=== PATIENT | female | born 1995 | race Caucasian/White ===

== ENCOUNTER → 2016-07-22 | Outpatient (CLI) | payer OTHER ==
--- NOTE | 2016-07-23 08:35 | RADIOLOGY REPORT (SQ) ---
EXAM DESCRIPTION: MRI HEAD COMBO COMPLETED DATE/TIME: 07/22/2016 8:27 pm REASON FOR STUDY: Multiple sclerosis,Migraine, Obstructive sleep apnea (adult) (pediatric) G35 MULT IPLE SCLEROSIS COMPARISON: CT head dated 03/28/2015. TECHNIQUE: Multiplanar imaging includes noncontrasted T1, T2, FLAIR, diffusion with ADC map and post gadolinium contrast T1 sequences. Images stored on PACS. CONTRAST TYPE AND DOSE: 20 mL Multihance. RENAL FUNCTION: None required. The patient is less than 50 years old. LIMITATIONS: None. FINDINGS: ANATOMY: No anomalies. Normal vascular flow voids. Pituitary fossa normal. CSF SPACES: Normal in size and contour. No hemorrhage. CEREBRUM: Sulci and gyri normal in size and contour. Normal white matter signal on FLAIR imaging. No evidence of hemorrhage, mass, or extraaxial fluid collection. No abnormal enhancement post contrast. POSTERIOR FOSSA: No signal alteration. No hemorrhage. No edema, masses, or mass effect. Internal porfirio tory canals, cerebellopontine angles, mastoids normal. No enhancing lesions. No abnormal enhancement post contrast. DIFFUSION IMAGING: Negative for acute or subacute infarction. ORBITS: No masses. Globes normal. PARANASAL SINUSES: No fluid levels. Mucosa normal. OTHER: No other significant finding. IMPRESSION: NORMAL MRI OF THE BRAIN WITHOUT AND WITH INTRAVENOUS GADOLINIUM CONTRAST. TECHNICAL DOCUMENTATION: JOB ID: [id number]- All Rights Reserved
== END ==
LOC: RAD 19:23
PROVIDERS: ATTEND Specialist
DX: G35 Multiple sclerosis (principal); G43.909 Migraine, unspecified, not intractable, without status migrainosus; G47.33 Obstructive sleep apnea (adult) (pediatric)
CPT/HCPCS: 70553; A9577

== ENCOUNTER 2017-07-06 19:32 | Emergency (ER) | payer OTHER ==
[2017-07-06 20:08] VITALS: BP 140/71
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
[2017-07-06] MEDS ORDERED: DIPH/PERTUSS(ACELL)/TETANUS VAC/PF 0.5 ML SYR (>=10YO) IM ONE (20:20)
[2017-07-06] MEDS ORDERED: SILVER SULFADIAZINE 1% CREAM 25 GM TP ONE (20:30)
== END 2017-07-06 20:54 | disposition home or self-care (01) ==
LOC: ER 19:32
DX: T24.201A Burn of second degree of unspecified site of right lower limb, except ankle and foot, initial encounter (principal); V86.59XA Driver of other special all-terrain or other off-road motor vehicle injured in nontraffic accident, initial encounter; Z23 Encounter for immunization
CPT/HCPCS: 90471; 90715; 99283

== ENCOUNTER 2017-08-03 10:34 | Emergency (ER) | payer OTHER ==
[2017-08-03 10:45] VITALS: BP 115/80
[2017-08-03] MEDS ORDERED: DEXAMETHASONE SOD PHOS INJ 10 MG/1 ML VIAL IM ONE (10:52)
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
== END 2017-08-03 11:02 | disposition home or self-care (01) ==
LOC: ER 10:34
DX: L23.7 Allergic contact dermatitis due to plants, except food (principal)
CPT/HCPCS: 99282

== ENCOUNTER 2017-11-16 22:10 | Emergency (ER) | payer OTHER ==
[2017-11-16 22:24] VITALS: BP 127/60
[2017-11-16] MEDS ORDERED: LIDOCAINE 1% INJ (10 MG/ML) 10 ML MDV INJ ONE (23:27)
[2017-11-16] MEDS ORDERED: BUPIVACAINE HCL 0.5 % INJ/PF 30 ML SDV INJ ONE (23:27)
[2017-11-16] MEDS ORDERED: LIDOCAINE 1% INJ-PF (10 MG/ML) 30 ML SDV INJ ONE (23:28)
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
== END 2017-11-17 00:49 | disposition home or self-care (01) ==
LOC: ER 22:10
PROC: 0HDRXZZ Extraction of Toe Nail, External Approach (ICD-10-PCS; principal; 2017-11-16)
DX: L60.0 Ingrowing nail (principal); Z88.0 Allergy status to penicillin; Z88.6 Allergy status to analgesic agent
CPT/HCPCS: 99283; 11730; J3490 ×2

== ENCOUNTER 2018-06-27 19:41 | Emergency (ER) | payer BC, OTHER ==
[2018-06-27] MEDS ORDERED: ACETAMINOPHEN 325 MG TABLET PO ONE (20:08)
--- NOTE | 2018-06-27 20:10 | ER Document Report ---
ED Medical Screen (RME) - General Chief Complaint: Flank Pain Stated Complaint: FLANK PAIN Time Seen by Provider: 06/27/18 20:07 Mode of Arrival: Ambulatory Information source: Patient Notes: 23-year-old female presents to ED for complaint of bilateral flank pain with burning frequency and urgency of urine. She states her last menstrual period was June 02. She states she has been nausea and vomiting up till now she is just nauseated. Patient states she has a history of an appendectomy and tonsils and adenoids removed denies any other medical history. Patient is alert oriented respirations regular and unlabored speaking in full sentences. I have greeted and performed a rapid initial assessment of this patient. A comprehensive ED assessment and evaluation of the patient, analysis of test results and completion of medical decision making process will be conducted by an additional ED providers. Dictation of this chart was performed using voice recognition software; therefore, there may be some unintended grammatical errors. TRAVEL OUTSIDE OF THE [place] IN LAST 30 DAYS: No - Related Data Allergies/Adverse Reactions: amoxicillin [Amoxicillin] Allergy (Verified 03/28/15 15:52) acetaminophen [From Vicodin] Adverse Reaction (Verified 03/28/15 15:52) Hives hydrocodone bitartrate [From Vicodin] Adverse Reaction (Verified 03/28/15 15:52) Hives Past Medical History Renal/ Medical History: Denies: Hx Peritoneal Dialysis Musculoskeltal Medical History: Reports Hx Musculoskeletal Trauma Traumatic Medical History: Reports: Hx Fractures - Wrist Past Surgical History: Reports: Hx Adenoidectomy, Hx Appendectomy, Hx Tonsillectomy - Immunizations Immunizations up to date: Yes Hx Diphtheria, Pertussis, Tetanus Vaccination: Yes Physical Exam - Vital signs Vitals: Temp Pulse Resp BP Pulse Ox 99.1 F 106 H 20 128/72 H 98 06/27/18 19:45 06/27/18 19:45 06/27/18 19:45 06/27/18 19:45 06/27/18 19:45 Course - Vital Signs Vital signs: Temp Pulse Resp BP Pulse Ox 99.1 F 106 H 20 128/72 H 98 06/27/18 19:45 06/27/18 19:45 06/27/18 19:45 06/27/18 19:45 06/27/18 19:45
[2018-06-27 20:56] LABS: APPEARANCE,URINE CLEAR; BILIRUBIN,URINE NEGATIVE (NEGATIVE); COLOR,URINE YELLOW; GLUCOSE, URINE NEGATIVE (NEGATIVE); KETONES,URINE NEGATIVE (NEGATIVE); LEUKOCYTE ESTERASE,URINE NEGATIVE (NEGATIVE); NITRITE,URINE NEGATIVE (NEGATIVE); PROTEIN,URINE NEGATIVE (NEGATIVE); URINE SPECIFIC GRAVITY 1.028
[2018-06-27 23:01] LABS: HEMATOCRIT 37.6 % (36.0-47.0); HEMOGLOBIN 12.7 g/dL (12.0-15.5); MEAN CORPUSCULAR HEMOGLOBIN 28.5 pg (27.0-33.4); MEAN CORPUSCULAR HGB CONC 33.7 g/dL (32.0-36.0); MEAN CORPUSCULAR VOLUME 85 fl (80-97); PLATELET COUNT 180 10^3/uL (150-450); RED BLOOD COUNT 4.45 10^6/uL (3.72-5.28); RED CELL DISTRIBUTION WIDTH 15.2 % (11.5-14.0); WHITE BLOOD COUNT 7.5 10^3/uL (4.0-10.5)
[2018-06-27] MEDS ORDERED: CEPHALEXIN 500 MG CAPSULE PO ONE (23:04)
--- NOTE | 2018-06-27 23:04 | ER Document Report ---
ED General - General Chief Complaint: Flank Pain Stated Complaint: FLANK PAIN Time Seen by Provider: 06/27/18 20:07 Mode of Arrival: Ambulatory Notes: Patient is a 23-year-old female with past medical history of morbid obesity, presents complaining of bilateral flank discomfort, dysuria and urinary frequency for the past 2 weeks. States that her symptoms are gradually, have been worsening since onset. Nothing seems to improve or worsen her discomfort which she does regard is being a mild to moderate, throbbing, constant pain to the bilateral flanks. She states this feels very similar to when she had kidney infections in the past. She also notes that she has had some hematuria. She has not seen her primary care physician regarding today's concerns. Denies fever or constitutional symptoms. No chest pain or shortness of breath. No pleuritic pain. No use of estrogen. No history of DVT or pulmonary embolus. TRAVEL OUTSIDE OF THE [place] IN LAST 30 DAYS: No - Related Data Allergies/Adverse Reactions: amoxicillin [Amoxicillin] Allergy (Verified 03/28/15 15:52) hydrocodone bitartrate [From Vicodin] Adverse Reaction (Verified 03/28/15 15:52) Hives Past Medical History - General Information source: Patient - Social History Smoking Status: Never Smoker Frequency of alcohol use: None Drug Abuse: None Lives with: Spouse/Significant other Family History: Reviewed & Not Pertinent, CVA, DM, Hypertension, Other - Multiple sclerosis Patient has suicidal ideation: No Patient has homicidal ideation: No Renal/ Medical History: Denies: Hx Peritoneal Dialysis Musculoskeletal Medical History: Reports Hx Musculoskeletal Trauma Traumatic Medical History: Reports: Hx Fractures - Wrist Past Surgical History: Reports: Hx Adenoidectomy, Hx Appendectomy, Hx Tonsillectomy - Immunizations Immunizations up to date: Yes Hx Diphtheria, Pertussis, Tetanus Vaccination: Yes Review of Systems - Review of Systems Notes: Constitutional: Negative for fever. HENT: Negative for sore throat. Eyes: Negative for visual changes. Cardiovascular: Negative for chest pain. Respiratory: Negative for shortness of breath. Gastrointestinal: Negative for abdominal pain, positive for bilateral flank pain, nausea and vomiting that have been resolved for the past several days Genitourinary: Positive for dysuria. Musculoskeletal: Negative for back pain. Skin: Negative for rash. Neurological: Negative for headaches, weakness or numbness. 10 point ROS negative except as marked above and in HPI. Physical Exam - Vital signs Vitals: Temp Pulse Resp BP Pulse Ox 99.1 F 106 H 20 128/72 H 98 06/27/18 19:45 06/27/18 19:45 06/27/18 19:45 06/27/18 19:45 06/27/18 19:45 Interpretation: Tachycardic - Resolved at the time of my assessment with a heart rate of 90 Notes: PHYSICAL EXAMINATION: GENERAL: Well-appearing, well-nourished and in no acute distress. HEAD: Atraumatic, normocephalic. EYES: Pupils equal round and reactive to light, extraocular movements intact, sclera anicteric, conjunctiva are normal. ENT: nares patent, oropharynx clear without exudates. Moist mucous membranes. NECK: Normal range of motion, supple without lymphadenopathy LUNGS: Breath sounds clear to auscultation bilaterally and equal. No wheezes rales or rhonchi. HEART: Regular rate and rhythm without murmurs ABDOMEN: Soft, nontender, normoactive bowel sounds. No guarding, no rebound. No masses appreciated. Mild bilateral CVA tenderness to palpation EXTREMITIES: Normal range of motion, no pitting or edema. No cyanosis. NEUROLOGICAL: No focal neurological deficits. Moves all extremities spontaneously and on command. PSYCH: Normal mood, normal affect. SKIN: Warm, Dry, normal turgor, no rashes or lesions noted. Course - Re-evaluation Re-evalutation: 06/27/18 23:02 Patient presents with bilateral CVA tenderness, dysuria and urine frequency although urinalysis is not suggestive of pyelonephritis. On exam patient is very well in appearance, no focal abdominal tenderness on palpation. Does have some mild bilateral CVA tenderness. Vitals are within normal limit. No fever or constitutional symptoms. Clinical history is suggestive of a urinary source of the patient's pain and symptoms. Alternative consideration would be muscular skeletal origin. Labs otherwise unremarkable. Urine culture has been sent. I have initiated empiric treatment given the degree of the patient's symptoms by history and have advised her of the inconsistency of her urine study with her reported complaints. I have advised close outpatient follow-up particular given this discrepancy. At this time will discharge with return precautions and follow-up recommendations. Verbal discharge instructions given a the bedside and opportunity for questions given. Medication warnings reviewed. Patient is in agreement with this plan and has verbalized understanding of return precautions and the need for primary care follow-up in the next 24-72 hours. - Vital Signs Vital signs: Temp Pulse Resp BP Pulse Ox 97.9 F 85 16 102/63 97 06/28/18 00:34 06/28/18 00:34 06/28/18 00:34 06/28/18 00:34 06/28/18 00:34 - Laboratory Result Diagrams: 06/27/18 22:50 06/27/18 22:50 Laboratory results interpreted by me: 06/27/18 06/27/18 06/27/18 20:19 22:50 22:50 RDW 15.2 H Seg Neuts % (Manual) 21 L Band Neutrophils % 1 L Lymphocytes % (Manual) 68 H Abs Lymphs (Manual) 5.4 H Chloride 109 H AST 48 H ALT 70 H Urine Blood MODERATE H Urine Urobilinogen 2.0 H Discharge - Discharge Clinical Impression: Bilateral flank pain, Dysuria, Urinary frequency Condition: Good Disposition: HOME, SELF-CARE Additional Instructions: As we discussed, your symptoms are worrisome for a urinary infection involving your kidneys but your urinalysis is not consistent with this pathology. However, given the degree of your symptoms we have elected to proceed with treating you with antibiotics and have sent a urine culture. You have been given a dose of antibiotics here in the emergency department to help begin to treat this infection. Your also being sent home on antibiotics. Please start taking these later on today when you fill the prescription. Complete the course even if you feel better. Please return if you have persistent vomiting, pass out, have worsening pain, become unable to tolerate fluids, or have any other symptoms that are concerning to you. Please follow-up with your primary care physician in the next 24-48 hours. Prescriptions: Cephalexin Monohydrate [Keflex 500 mg Capsule] 500 mg PO Q6H 7 Days capsule
[2018-06-27 23:19] LABS: ABSOLUTE LYMPHOCYTES# (MANUAL) 5.4 10^3/uL (0.5-4.7); ABSOLUTE MONOCYTES # (MANUAL) 0.4 10^3/uL (0.1-1.4); ABSOLUTE NEUTROPHILS# (MANUAL) 1.7 10^3/uL (1.7-8.2); BAND NEUTROPHILS % (MANUAL) 1 % (3-5); BASOPHILS % (MANUAL) 0 % (0-2); EOSINOPHILS % (MANUAL) 1 % (0-6); MONOCYTES % (MANUAL) 5 % (3-13); SEGMENTED NEUTROPHILS % (MAN) 21 % (42-78); TOTAL CELLS COUNTED 100
[2018-06-27 23:20] LABS: ANISOCYTOSIS SLIGHT; PLATELET COMMENT ADEQUATE; POIKILOCYTOSIS SLIGHT; ROULEAUX 1+
[2018-06-27 23:21] LABS: LYMPHOCYTES % (MANUAL) 68 % (13-45)
[2018-06-27 23:23] LABS: ALANINE AMINOTRANSFERASE 70 U/L (9-52); ALBUMIN 3.8 g/dL (3.5-5.0); ALKALINE PHOSPHATASE 63 U/L (38-126); ANION GAP 7 (5-19); ASPARTATE AMINO TRANSFERASE 48 U/L (14-36); BILIRUBIN,DIRECT 0.3 mg/dL (0.0-0.4); BILIRUBIN,TOTAL 0.5 mg/dL (0.2-1.3); BLOOD UREA NITROGEN 10 mg/dL (7-20); CALCIUM 9.5 mg/dL (8.4-10.2); CARBON DIOXIDE 26 mmol/L (22-30); CHLORIDE 109 mmol/L (98-107); GLUCOSE 99 mg/dL (75-110); POTASSIUM 4.2 mmol/L (3.6-5.0); SODIUM 141.9 mmol/L (137-145); TOTAL PROTEIN 6.8 g/dL (6.3-8.2)
[2018-06-28 00:36] VITALS: BP 102/63
[2018-06-29 12:49] LABS: PATH REVIEW PATHOLOGIST REVIEWED
== END 2018-06-28 00:36 | disposition home or self-care (01) ==
LOC: ER 19:41
DX: R10.9 Unspecified abdominal pain (principal); R30.0 Dysuria; R35.0 Frequency of micturition; R31.9 Hematuria, unspecified; Z87.440 Personal history of urinary (tract) infections; Z88.0 Allergy status to penicillin; Z90.49 Acquired absence of other specified parts of digestive tract
CPT/HCPCS: 36415; 80053; 81001; 81025; 85025; 87086; 99284

== ENCOUNTER 2018-07-20 12:13 | Emergency (ER) | payer BC ==
[2018-07-20 12:20] VITALS: BP 125/73
[2018-07-20] MEDS ORDERED: CYCLOBENZAPRINE HCL 10 MG TABLET PO ONE (13:01)
[2018-07-20] MEDS ORDERED: LIDOCAINE 5% (700 MG) TRANSDERMAL ADH..PATCH TP ONE (13:01)
[2018-07-20] MEDS ORDERED: KETOROLAC TROMETHAMINE 60 MG/2 ML SDV IM ONE (13:31)
--- NOTE | 2018-07-20 13:35 | ER Document Report ---
HPI - HPI Patient complains to provider of: Right back pain Time Seen by Provider: 07/20/18 12:50 Pain Level: 2 Context: Patient is a 23-year-old female morbidly obese presents to the emergency department for generalized right back pain. Patient states yesterday morning she was trying to pull up her pants. States she feels as though she twisted weird way and immediately had pain in the right side of her back. States the pain now moves down to her right buttocks which is why she presents to the emergency room. Patient's denying any numbness or tingling in any extremity. Patient's denying any urinary retention, loss of bowel or bladder. Patient is also denying any trauma or injury to her back. Patient states she is sexually active and she is unsure of her last menstrual cycle. - EENT EENT: DENIES: Sore Throat, Ear Pain, Eye problems - NEURO Neurology: DENIES: Headache, Weakness, Vision blurred, Dizzinesss / Vertigo - CARDIOVASCULAR Cardiovascular: DENIES: Chest pain - RESPIRATORY Respiratory: DENIES: Trouble Breathing, Coughing - GASTROINTESTINAL Gastrointestinal: DENIES: Abdominal Pain, Black / Bloody Stools - URINARY Urinary: DENIES: Dysuria, Urgency, Frequency - REPRODUCTIVE Reproductive: DENIES: : - MUSCULOSKELETAL Musculoskeletal: DENIES: Extremity pain Past Medical History - General Information source: Patient - Social History Smoking Status: Never Smoker Chew tobacco use (# tins/day): No Frequency of alcohol use: None Drug Abuse: None Family History: Reviewed & Not Pertinent, CVA, DM, Hypertension, Other - Multiple sclerosis Patient has suicidal ideation: No Patient has homicidal ideation: No Renal/ Medical History: Denies: Hx Peritoneal Dialysis Musculoskeletal Medical History: Reports Hx Musculoskeletal Trauma Traumatic Medical History: Reports: Hx Fractures - Wrist Past Surgical History: Reports: Hx Adenoidectomy, Hx Appendectomy, Hx Tonsillectomy - Immunizations Immunizations up to date: Yes Hx Diphtheria, Pertussis, Tetanus Vaccination: Yes Vertical Provider Document - CONSTITUTIONAL Agree With Documented VS: Yes Notes: GENERAL: Morbidly obese alert, interacts well. No acute distress. HEAD: Normocephalic, atraumatic. EYES: Pupils equal, round, and reactive to light. Extraocular movements intact. ENT: Oral mucosa moist, tongue midline. NECK: Full range of motion. Supple. Trachea midline. LUNGS: Clear to auscultation bilaterally, no wheezes, rales, or rhonchi. No respiratory distress. HEART: Regular rate and rhythm. No murmur ABDOMEN: Soft, non-tender. Non-distended. Bowel sounds present in all 4 quadrants. EXTREMITIES: Moves all 4 extremities spontaneously. No edema, normal radial and dorsalis pedis pulses bilaterally. No cyanosis. 5 out of 5 strength all 4 extremities. BACK: no cervical, thoracic, lumbar midline tenderness. No saddle anesthesia, normal distal neurovascular exam. Pain upon palpation right paraspinal lumbar region radiating into right buttocks. NEUROLOGICAL: Alert and oriented x3. Normal speech. cranial nerves II through XII grossly intact. PSYCH: Normal affect, normal mood. SKIN: Warm, dry, normal turgor. No rashes or lesions noted. - INFECTION CONTROL TRAVEL OUTSIDE OF THE [place] IN LAST 30 DAYS: No Course - Re-evaluation Re-evalutation: 07/20/18 13:32 Presentation of a well appearing patient complaining of acute back pain. No trauma, systemic symptoms including fevers, chills, weight loss, history of recent bacterial infection, bilateral symptoms, numbness, weakness, difficulty walking, urinary retention or bowel incontinence, personal history of cancer, immunosuppression, diabetes, known AAA, or history of IV drug use. Exam is without point tenderness over vertebral bodies, pulsatile abdominal mass, and patient has symmetric and intact lower extremity strength, sensation, and reflexes without clonus. 2+ symmetric medial malleolar and dorsalis pedis pulses Based on history and physical, I have a very low suspicion of a concerning etiology of pain including epidural compression syndrome, spinal infection, transverse myelitis, malignancy, abdominal aortic aneurysm, renal colic, acute lower extremity claudication, neurogenic claudication, ankylosing spondylitis, or other intra-abdominal process. Due to absence of concerning risk factors in history and physical as well as absence of rapidly progressive, severe, or bilateral symptoms, will defer imaging at this point. Plan to manage conservatively with outpatient analgesia, analgesia, and physical therapy. - Acetaminophen 1000 q 4 + ibuprofen 800 q 6 - Continue normal daily activities as tolerated by pain - Provide with standard musculoskeletal back pain exercise instructions - Instruct to follow up with primary care provider if symptoms not improving - Provide careful return precautions and concerning symptoms to watch for. - Vital Signs Vital signs: Temp Pulse Resp BP Pulse Ox 97.8 F 80 18 125/73 99 07/20/18 12:19 07/20/18 12:19 07/20/18 12:19 07/20/18 12:19 07/20/18 12:19 Discharge - Discharge Clinical Impression: Lumbar back pain Sciatica Qualifiers: Laterality: right Qualified Code(s): M54.31 - Sciatica, right side Condition: Stable Disposition: HOME, SELF-CARE Instructions: Muscle Strain ([facility]), Low Back Pain ([facility]), Warm Packs ([facility]), Pain Medication Injection ([facility]), Sciatica ([facility]) Additional Instructions: You have been seen in the Emergency Department (ED) today for back pain. Your workup and exam have not shown any acute abnormalities and you are likely suffering from muscle strain or possible problems with your discs, but there is no treatment that will fix your symptoms at this time. Please take the naproxen that has been prescribed as directed. You should also purchase a local lidocaine cream such as "aspercreme with lidocaine" and use per bottle instructions to the affected area. Apply heat to the area as often as you are able. Continue to keep active and avoid prolonged periods of bed rest. Please follow up with your doctor as soon as possible regarding today's ED visit and your back pain. Return to the ED for worsening back pain, fever, weakness or numbness of either leg, or if you develop either (1) an inability to urinate or have bowel movements, or (2) loss of your ability to control your bathroom functions (if you start having "accidents"), or if you develop other new symptoms that concern you.concern you. Prescriptions: Cyclobenzaprine HCl [Flexeril 10 mg Tablet] 10 mg PO TIDP PRN #15 tab PRN Reason: Forms: Return to Work Referrals: CHANA SORTO DO [ACTIVE STAFF] - Follow up as needed
== END 2018-07-20 14:14 | disposition home or self-care (01) ==
LOC: ER 12:13
DX: M54.41 Lumbago with sciatica, right side (principal); M54.9 Dorsalgia, unspecified; X50.1XXA Overexertion from prolonged static or awkward postures, initial encounter
CPT/HCPCS: 99283; 96372; 81025; J1885

== ENCOUNTER 2019-01-30 02:46 | Emergency (ER) | payer BC, MEDICAID ==
[2019-01-30 03:48] LABS: APPEARANCE,URINE CLOUDY; BILIRUBIN,URINE NEGATIVE (NEGATIVE); COLOR,URINE YELLOW; GLUCOSE, URINE NEGATIVE (NEGATIVE); KETONES,URINE NEGATIVE (NEGATIVE); LEUKOCYTE ESTERASE,URINE NEGATIVE (NEGATIVE); NITRITE,URINE NEGATIVE (NEGATIVE); PROTEIN,URINE 30 mg/dL (NEGATIVE); URINE SPECIFIC GRAVITY 1.028
[2019-01-30 03:50] LABS: ABSOLUTE BASOPHILS # (AUTO) 0.1 10^3/uL (0.0-0.2); ABSOLUTE EOSINOPHILS # (AUTO) 0.1 10^3/uL (0.0-0.6); ABSOLUTE LYMPHOCYTES (AUTO) 2.5 10^3/uL (0.5-4.7); ABSOLUTE MONOCYTES (AUTO) 0.7 10^3/uL (0.1-1.4); ABSOLUTE NEUT (AUTO) 5.6 10^3/uL (1.7-8.2); BASOPHILS % (AUTO) 0.6 % (0-2); HEMATOCRIT 40.8 % (36.0-47.0); HEMOGLOBIN 13.8 g/dL (12.0-15.5); LYMPHOCYTES % (AUTO) 28.1 % (13-45); MEAN CORPUSCULAR HGB CONC 33.9 g/dL (32.0-36.0); MEAN CORPUSCULAR VOLUME 86 fl (80-97); MONOCYTES % (AUTO) 7.3 % (3-13); PLATELET COUNT 255 10^3/uL (150-450); RED BLOOD COUNT 4.77 10^6/uL (3.72-5.28); RED CELL DISTRIBUTION WIDTH 14.1 % (11.5-14.0); TOTAL CELLS COUNTED % (AUTO) 100 %; WHITE BLOOD COUNT 8.9 10^3/uL (4.0-10.5)
[2019-01-30 04:00] LABS: ALBUMIN 4.1 g/dL (3.5-5.0); ALKALINE PHOSPHATASE 50 U/L (38-126); ANION GAP 8 (5-19); ASPARTATE AMINO TRANSFERASE 19 U/L (14-36); BILIRUBIN,DIRECT 0.1 mg/dL (0.0-0.4); BILIRUBIN,TOTAL 0.3 mg/dL (0.2-1.3); BLOOD UREA NITROGEN 12 mg/dL (7-20); CALCIUM 9.8 mg/dL (8.4-10.2); CARBON DIOXIDE 26 mmol/L (22-30); CHLORIDE 108 mmol/L (98-107); GLUCOSE 100 mg/dL (75-110); POTASSIUM 4.1 mmol/L (3.6-5.0); TOTAL PROTEIN 6.8 g/dL (6.3-8.2)
[2019-01-30] MEDS ORDERED: ONDANSETRON 4 MG TAB.RAPDIS PO ONE (04:24)
--- NOTE | 2019-01-30 04:40 | ER Document Report ---
ED GI/ - General Chief Complaint: General Weakness Stated Complaint: FEEL SICK, WEAK Time Seen by Provider: 01/30/19 04:34 [facility] - 02/01/19 Notes: Patient is a 23-year-old female that comes emergency department for chief complaint of vomiting, some generalized upper abdominal pain after the vomiting, and possible . She only vomited once tonight, she states that she has vomited 3 times over the past 3 and half weeks. She does have frequent nausea however, she has not had a menstrual cycle since middle of last month. She denies vaginal bleeding or discharge, dysuria, fever, lower abdominal pain, flank pain. She has had an appendectomy and tonsillectomy, denies medical history otherwise, takes no daily medications. TRAVEL OUTSIDE OF THE [place] IN LAST 30 DAYS: No - Related Data Allergies/Adverse Reactions: amoxicillin [Amoxicillin] Allergy (Verified 07/20/18 12:27) hydrocodone bitartrate [From Vicodin] Adverse Reaction (Verified 07/20/18 12:27) Hives Past Medical History - General Information source: Patient - Social History Smoking Status: Never Smoker Frequency of alcohol use: None Drug Abuse: Marijuana Lives with: Family Family History: Reviewed & Not Pertinent, CVA, DM, Hypertension, Other - Multiple sclerosis Patient has suicidal ideation: No Patient has homicidal ideation: No Renal/ Medical History: Denies: Hx Peritoneal Dialysis Musculoskeletal Medical History: Reports Hx Musculoskeletal Trauma Traumatic Medical History: Reports: Hx Fractures - Wrist Past Surgical History: Reports: Hx Adenoidectomy, Hx Appendectomy, Hx Tonsillectomy - Immunizations Immunizations up to date: Yes Hx Diphtheria, Pertussis, Tetanus Vaccination: Yes Review of Systems - Review of Systems Constitutional: No symptoms reported EENT: No symptoms reported Cardiovascular: No symptoms reported Respiratory: No symptoms reported Gastrointestinal: See HPI Genitourinary: No symptoms reported Female Genitourinary: See HPI Musculoskeletal: No symptoms reported Skin: No symptoms reported Hematologic/Lymphatic: No symptoms reported Neurological/Psychological: No symptoms reported Physical Exam - Vital signs Vitals: Temp Pulse Resp BP Pulse Ox 97.9 F 89 16 118/64 99 01/30/19 02:54 01/30/19 02:54 01/30/19 02:54 01/30/19 02:54 01/30/19 02:54 - Notes Notes: GENERAL: Alert, interacts well. No acute distress. HEAD: Normocephalic, atraumatic. EYES: Pupils equal, round, and reactive to light. Extraocular movements intact. ENT: Oral mucosa moist, tongue midline. Oropharynx unremarkable. Airway patent. NECK: Full range of motion. Supple. Trachea midline. LUNGS: Clear to auscultation bilaterally, no wheezes, rales, or rhonchi. No respiratory distress. HEART: Regular rate and rhythm. No murmur ABDOMEN: Soft, non-tender. Non-distended. Bowel sounds present in all 4 quadrants. GENITOURINARY: Deferred EXTREMITIES: Moves all 4 extremities spontaneously. No edema, normal radial and dorsalis pedis pulses bilaterally. No cyanosis. BACK: no cervical, thoracic, lumbar midline tenderness. No saddle anesthesia, normal distal neurovascular exam. Moves all extremities in full range of motion. NEUROLOGICAL: Alert and oriented x3. Normal speech. Cranial nerves II through XII grossly intact. PSYCH: Normal affect, normal mood. SKIN: Warm, dry, normal turgor. No rashes or lesions noted. Course - Re-evaluation Re-evalutation: Patient vomited once after arrival to the emergency department but after giving her Zofran this resolved her symptoms and she became asymptomatic. No current complaints. CBC, chemistry nonspecific. Urinalysis shows dehydration. test is positive. hCG added but shows her hormone is still indicating early . Discussed with patient. She is not bleeding, she has no lower abdominal pain, additional work-up is not required at this time. Patient states she would start vitamins, she request nausea medication for home, she states she will follow-up with health department, patient provided her with appropriate . Discussed return precautions. Patient states appreciation and agreement. Stable at time of discharge. - Vital Signs Vital signs: Temp Pulse Resp BP Pulse Ox 98.0 F 100 18 104/52 L 99 01/30/19 07:25 01/30/19 07:25 01/30/19 07:25 01/30/19 07:25 01/30/19 07:25 - Laboratory Result Diagrams: 01/30/19 03:26 01/30/19 03:26 Laboratory results interpreted by me: 01/30/19 01/30/19 01/30/19 03:26 03:26 03:26 RDW 14.1 H Chloride 108 H Beta HCG, Quant Urine Protein 30 H Urine Urobilinogen 2.0 H Urine HCG, Qual POSITIVE H 01/30/19 03:26 RDW Chloride Beta HCG, Quant 1439.20 H Urine Protein Urine Urobilinogen Urine HCG, Qual Discharge - Discharge Clinical Impression: Vomiting affecting Condition: Stable Disposition: HOME, SELF-CARE Additional Instructions: You are . This most likely is the cause of your nausea and vomiting. Drink plenty fluids, take the prescribed nausea medication if needed, start taking vitamins. Call the listed referral to begin your work-up and m anagement during . Return for any concerning symptoms including uncontrolled vomiting, lower abdominal pain, fever, vaginal bleeding, or any other concerning or worsening symptoms. Prescriptions: Metoclopramide HCl [Reglan] 5 mg PO ASDIR PRN #30 tablet PRN Reason: Forms: Return to Work Referrals: [facility] [NO LOCAL MD] - 02/01/19
[2019-01-30 07:33] VITALS: BP 104/52
== END 2019-01-30 07:25 | disposition home or self-care (01) ==
LOC: ER 02:46
DX: O21.9 Vomiting of pregnancy, unspecified (principal); R53.1 Weakness; R10.10 Upper abdominal pain, unspecified; Z88.0 Allergy status to penicillin; Z88.6 Allergy status to analgesic agent
CPT/HCPCS: 99284; 36415; 84702; 83690; 85025; 81025; 80053; 81001; S0119

== ENCOUNTER 2019-02-17 12:11 | Emergency (ER) | payer BC ==
[2019-02-17 12:58] VITALS: BP 116/72
--- NOTE | 2019-02-17 13:00 | ER Document Report ---
HPI - HPI Time Seen by Provider: 02/17/19 12:50 Pain Level: 4 Context: Patient is a 23-year-old female who presents to the emergency department with a chief complaint of ear pain. Patient reports she has had bilateral ear pain for about 1 week. Patient reports she is also had a nonproductive cough and nasal congestion. Patient reports she has not had a fever but does report intermittent chills. Patient denies body aches. Patient reports she does live with her niece who was recently exposed to the flu. Patient reports intermittent nausea and vomiting but reports she is able to tolerate liquids. Patient reports she is currently 8 weeks and did not receive the flu shot. Patient denies abdominal pain or vaginal bleeding or discharge. Patient reports she has not taken anything for her just comfort. - REPRODUCTIVE LMP: 12/25/2018 Reproductive: REPORTS: : Past Medical History - General Information source: Patient - Social History Smoking Status: Never Smoker Chew tobacco use (# tins/day): No Frequency of alcohol use: None Drug Abuse: None Lives with: Family Family History: Reviewed & Not Pertinent, CVA, DM, Hypertension, Other - Multiple sclerosis Patient has suicidal ideation: No Patient has homicidal ideation: No - Past Medical History Cardiac Medical History: Reports: None Pulmonary Medical History: Reports: None EENT Medical History: Reports: None Neurological Medical History: Reports: None Endocrine Medical History: Reports: None Renal/ Medical History: Reports: None. Denies: Hx Peritoneal Dialysis Malignancy Medical History: Reports: None GI Medical History: Reports: None Musculoskeletal Medical History: Reports Hx Musculoskeletal Trauma Skin Medical History: Reports None Psychiatric Medical History: Reports: None Traumatic Medical History: Reports: Hx Fractures - Wrist Infectious Medical History: Reports: None Past Surgical History: Reports: Hx Adenoidectomy, Hx Appendectomy, Hx Tonsillectomy - Immunizations Immunizations up to date: Yes Hx Diphtheria, Pertussis, Tetanus Vaccination: Yes Vertical Provider Document - CONSTITUTIONAL Agree With Documented VS: Yes Exam Limitations: No Limitations General Appearance: No Apparent Distress Notes: GENERAL: Well-appearing, well-nourished and in no acute distress. HEAD: Atraumatic, normocephalic. EYES: Pupils equal round and reactive to light, extraocular movements intact, sclera anicteric, conjunctiva are normal. ENT: TMs normal without tragus or mastoid tenderness bilaterally. Nares patent, slightly erythematous turbinates bilaterally, no rhinorrhea, oropharynx clear without exudates. No sinus tenderness with palpation. Moist mucous membranes. NECK: Normal range of motion, supple without lymphadenopathy or JVD. LUNGS: Breath sounds clear to auscultation bilaterally and equal. No wheezes rales or rhonchi. HEART: Regular rate and rhythm without murmurs, rubs or gallops. ABDOMEN: Soft, nontender, normoactive bowel sounds. No guarding, no rebound. No masses appreciated. BACK: No cervical, thoracic, lumbar midline tenderness. No saddle anesthesia, normal distal neurovascular exam. GENITOURINARY: Deferred. EXTREMITIES: Normal range of motion, no pitting or edema. No clubbing or cyanosis. NEUROLOGICAL: Cranial nerves II through XII grossly intact. Normal speech, normal gait. PSYCH: Normal mood, normal affect. SKIN: Warm, Dry, normal turgor, no rashes or lesions noted. - INFECTION CONTROL TRAVEL OUTSIDE OF THE [place] IN LAST 30 DAYS: No Course - Re-evaluation Re-evalutation: 02/17/19 12:58 Patient is nontoxic-appearing in no acute distress. Patient does not appear to have an ear infection at this time. Did inform the patient she can take Tylenol as needed for her pain. Patient has a upper respiratory infection caused by a virus also called the common cold as discussed with the patient. Will test for the flu as she was recently exposed by a family member who does live in the same household. Patient did not receive the influenza vaccine. 02/17/19 14:26 Patient's influenza testing was negative. Did discuss results with the patient. Encouraged to get the flu vaccine. Discharge - Discharge Clinical Impression: Acute pain of both ears, Cough, Nasal congestion Condition: Stable Disposition: HOME, SELF-CARE Additional Instructions: *Warm salt water gargles and throat lozenges for comfort of sore throat *Do not let anyone drink/eat after you *Good hand washing *Follow-up with a primary care provider *Return to ED for worsening condition change, needs UPPER RESPIRATORY ILLNESS: You have a viral infection of the respiratory passages -- a "cold." This common infection causes nasal congestion, drainage, and often sore throat and cough. It is highly contagious. The disease usually lasts about 10 to 14 days. There is no "cure" for the viral infection -- it must run its course. If there is a complication, such as bacterial infection in the nose, sinuses, middle ear, or bronchial tubes, antibiotics may be required. The antibiotics won't affect the virus. Drink plenty of fluids. A humidifier may help. Use acetaminophen for fever or aches. See the doctor if fever persists over two days, if there is any significant worsening of your symptoms, or if you simply fail to improve as expected. USE OF ACETAMINOPHEN (Tylenol): Acetaminophen may be taken for pain relief or fever control. It's much safer than aspirin, offering a wider range of "safe" dosages. It is safe during . Some brand names are Tylenol, Panadol, Datril, Anacin 3, Tempra, and Liquiprin. Acetaminophen can be repeated every four hours. The following are maximum recommended dosages: >89 pounds or adults 650 mg to 900 mg Acetaminophen can be repeated every four hours. Maximum dose not to exceed 4000 mg a day. SMOKING: If you smoke, you should stop smoking. The tar and chemicals in cigarette smoke are harmful. Smoking has been shown to cause: emphysema chronic bronchitis lung cancer mouth and throat cancer stomach and pancreas cancer premature aging defects In addition, smoking increases ear and lung infections in children of smokers. FOLLOW-UP CARE: If you have been referred to a physician for follow-up care, call the physicians office for an appointment as you were instructed or within the next two days. If you experience worsening or a significant change in your symptoms, notify the physician immediately or return to the Emergency Department at any time for re-evaluation. Forms: Return to Work Referrals: [facility] [Provider Group] - Follow up as needed
[2019-02-17] MEDS ORDERED: ACETAMINOPHEN 325 MG TABLET PO ONE (13:19)
[2019-02-17 13:57] LABS: A TYPE INFLUENZA AG NEGATIVE (NEGATIVE); B INFLUENZA AG NEGATIVE (NEGATIVE)
== END 2019-02-17 14:42 | disposition home or self-care (01) ==
LOC: ER 12:11
DX: O21.9 Vomiting of pregnancy, unspecified (principal); O26.891 Other specified pregnancy related conditions, first trimester; H92.03 Otalgia, bilateral; R05 Cough; R09.81 Nasal congestion; R50.9 Fever, unspecified; Z3A.08 8 weeks gestation of pregnancy
CPT/HCPCS: 87804; 99283

== ENCOUNTER 2019-06-01 15:30 | Outpatient (CLI) | payer BC, MEDICAID ==
[2019-06-01 16:24] LABS: BACTERIA (WET MOUNT) 4+ BACTERIA SEEN; EPITHELIALS (WET MOUNT) 4+ EPITHELIALS SEEN; T.VAGINALIS (WET MOUNT) NO TRICHOMONAS SEEN; WBCS (WET MOUNT) 3+ WBCS SEEN; YEAST (WET MOUNT) NO YEAST SEEN
[2019-06-01 16:37] LABS: APPEARANCE,URINE CLOUDY; BILIRUBIN,URINE NEGATIVE (NEGATIVE); COLOR,URINE AMBER; GLUCOSE, URINE NEGATIVE (NEGATIVE); KETONES,URINE TRACE mg/dL (NEGATIVE); LEUKOCYTE ESTERASE,URINE TRACE (NEGATIVE); NITRITE,URINE NEGATIVE (NEGATIVE); PROTEIN,URINE 30 mg/dL (NEGATIVE); URINE SPECIFIC GRAVITY 1.025
[2019-06-01 16:50] LABS: URINE AMPHETAMINES SCREEN NEGATIVE; URINE BARBITURATES SCREEN NEGATIVE; URINE BENZODIAZEPINES SCREEN NEGATIVE; URINE COCAINE SCREEN NEGATIVE; URINE MARIJUANA (THC) SCREEN NEGATIVE; URINE METHADONE SCREEN NEGATIVE; URINE PHENCYCLIDINE SCREEN NEGATIVE
[2019-06-01 17:57] LABS: CHLAM PCR NOT DETECTED (NOT DETECT)
[2019-06-01] MEDS ORDERED: CEPHALEXIN 500 MG CAPSULE PO SCH (18:00)
== END 2019-06-01 18:13 | disposition home or self-care (01) ==
LOC: LC 15:30
PROVIDERS: ATTEND Obstetrics & Gynecology
DX: O23.42 Unspecified infection of urinary tract in pregnancy, second trimester (principal); O46.92 Antepartum hemorrhage, unspecified, second trimester; Z3A.22 22 weeks gestation of pregnancy
CPT/HCPCS: 80307; 81001; 87086; 87210; 87491; 87591

== ENCOUNTER 2019-07-27 10:39 | Outpatient (CLI) | payer BC, MEDICAID ==
[2019-07-27 11:12] LABS: APPEARANCE,URINE TURBID; BILIRUBIN,URINE NEGATIVE (NEGATIVE); COLOR,URINE AMBER; GLUCOSE, URINE NEGATIVE (NEGATIVE); KETONES,URINE NEGATIVE (NEGATIVE); LEUKOCYTE ESTERASE,URINE LARGE (NEGATIVE); NITRITE,URINE NEGATIVE (NEGATIVE); PROTEIN,URINE 30 mg/dL (NEGATIVE); URINE SPECIFIC GRAVITY 1.018; UROBILINOGEN,URINE NEGATIVE mg/dL (<2.0)
[2019-07-27 11:30] LABS: URINE AMPHETAMINES SCREEN NEGATIVE; URINE BARBITURATES SCREEN NEGATIVE; URINE BENZODIAZEPINES SCREEN NEGATIVE; URINE COCAINE SCREEN NEGATIVE; URINE MARIJUANA (THC) SCREEN NEGATIVE; URINE METHADONE SCREEN NEGATIVE; URINE PHENCYCLIDINE SCREEN NEGATIVE
== END 2019-07-27 11:57 | disposition home or self-care (01) ==
LOC: LC 10:39
PROVIDERS: ATTEND Student in an Organized Health Care Education/Training Program
DX: O36.8130 Decreased fetal movements, third trimester, not applicable or unspecified (principal); Z3A.30 30 weeks gestation of pregnancy
CPT/HCPCS: 80307; 81001

== ENCOUNTER 2019-09-19 19:57 | Outpatient (CLI) | payer BC, MEDICAID ==
[2019-09-19 20:43] LABS: APPEARANCE,URINE SLIGHTLY-CLOUDY; BILIRUBIN,URINE NEGATIVE (NEGATIVE); COLOR,URINE AMBER; GLUCOSE, URINE NEGATIVE (NEGATIVE); KETONES,URINE NEGATIVE (NEGATIVE); LEUKOCYTE ESTERASE,URINE NEGATIVE (NEGATIVE); NITRITE,URINE NEGATIVE (NEGATIVE); PROTEIN,URINE 30 mg/dL (NEGATIVE); URINE SPECIFIC GRAVITY 1.024
[2019-09-19 20:57] LABS: URINE AMPHETAMINES SCREEN NEGATIVE; URINE BARBITURATES SCREEN NEGATIVE; URINE BENZODIAZEPINES SCREEN NEGATIVE; URINE COCAINE SCREEN NEGATIVE; URINE MARIJUANA (THC) SCREEN NEGATIVE; URINE METHADONE SCREEN NEGATIVE; URINE PHENCYCLIDINE SCREEN NEGATIVE
[2019-09-19] MEDS ORDERED: HYDROXYZINE PAMOATE 50 MG CAPSULE ONE (21:39)
[2019-09-19] MEDS ORDERED: HYDROXYZINE PAMOATE 50 MG CAPSULE PO ONE (22:00)
--- NOTE | 2019-09-19 22:02 | Non Stress Test Report ---
Non Stress Test Datetime Report Generated by CPN: 09/19/2019 22:01 DEMOGRAPHIC EGA NST: 38.2 INDICATION Indication for Study (NST) Other: Gestational age greater than 32 weeks VITAL SIGNS Temperature - NST: 98.5 Pulse - NST: 101 RESP - NST: 17 NBPSYS NST: 107 NBPDIA NST: 57 MONITORING Monitor Explained: Monitor Explained; Test Explained; Patient Verbalized Understanding Time on Monitor: 09/19/2019 20:11 Time off Monitor: 09/19/2019 21:13 NST Duration: 62 NST INTERVENTIONS NST Interventions: PO Hydration; Reposition Patient Physician Notified NST: Dr. Terrazas BABY A: [id number] BABY A Movement : Present Contraction Frequency : irregular FHR Baseline : 145 Accelerations : 15X15 Decelerations : None Variability : Moderate 6-25bpm NST Review: Meets Criteria for Reactive NST NST Review and Verified By : Nelia Foy RN NST Results: Reactive NST REPORT Report Trigger: Send Report
== END 2019-09-19 21:49 | disposition home or self-care (01) ==
LOC: LC 19:57
PROVIDERS: ATTEND Obstetrics & Gynecology
DX: O47.1 False labor at or after 37 completed weeks of gestation (principal); Z3A.38 38 weeks gestation of pregnancy
CPT/HCPCS: 59025; 80307; 81005

== ENCOUNTER 2019-09-30 10:41 | Outpatient (CLI) | payer BC, MEDICAID ==
--- NOTE | 2019-09-30 11:32 | Non Stress Test Report ---
Non Stress Test Datetime Report Generated by CPN: 09/30/2019 11:32 DEMOGRAPHIC EGA NST: 39.6 INDICATION Indication for Study (NST) Other: sent from office for nonreactive NST VITAL SIGNS Temperature - NST: 98.5 Pulse - NST: 88 RESP - NST: 16 NBPSYS NST: 131 NBPDIA NST: 77 MONITORING Monitor Explained: Monitor Explained; Test Explained; Patient Verbalized Understanding Time on Monitor: 09/30/2019 11:00 Time off Monitor: 09/30/2019 11:20 NST Duration: 20 NST INTERVENTIONS NST Interventions: PO Hydration Physician Notified NST: P. Jimenez, CNM BABY A: [id number] BABY A Movement : Decreased Contraction Frequency : none FHR Baseline : 145 Accelerations : 15X15 Decelerations : None Variability : Moderate 6-25bpm NST Review: Meets Criteria for Reactive NST NST Review and Verified By : Enoch Basilio, RN NST Results: Reactive NST COMMENTS NST Comments: maternal perception of FM diminished secondary to anterior placenta and maternal obesity despite reactive NST NST REPORT Report Trigger: Send Report
== END 2019-09-30 11:29 | disposition home or self-care (01) ==
LOC: LC 10:41
PROVIDERS: ATTEND Obstetrics & Gynecology Gynecology
DX: Z34.93 Encounter for supervision of normal pregnancy, unspecified, third trimester (principal)
CPT/HCPCS: 59025

== ENCOUNTER 2019-10-06 23:46 | Inpatient (IN) | payer BC, MEDICAID ==
[2019-10-07] MEDS ORDERED: MAG HYDROX/AL HYDROX/SIMETH SUSP 30 ML UDCUP PO PRN (00:24)
[2019-10-07] MEDS ORDERED: DINOPROSTONE 10 MG VAGINAL INSERT.SR PV ONE (00:24)
[2019-10-07] MEDS ORDERED: RINGERS SOLUTION,LACTATED 300 ML IV ONE (00:24)
[2019-10-07] MEDS ORDERED: OXYTOCIN/0.9 % SODIUM CHLORIDE 30 UNIT/500 ML RTUINJ IV PRN (00:24)
[2019-10-07] MEDS ORDERED: ACETAMINOPHEN 325 MG TABLET PO PRN (00:24)
[2019-10-07] MEDS ORDERED: ZOLPIDEM TARTRATE 5 MG TABLET PO PRN (00:24)
[2019-10-07] MEDS ORDERED: LIDOCAINE 1% INJ-PF (10 MG/ML) 30 ML SDV ONE (01:27)
[2019-10-07] MEDS ORDERED: OXYTOCIN 10 UNIT/ML VIAL ONE (01:27)
[2019-10-07] MEDS ORDERED: MISOPROSTOL 0.2 MG TABLET ONE (01:27)
[2019-10-07] MEDS ORDERED: OXYTOCIN/0.9 % SODIUM CHLORIDE 30 UNIT/500 ML RTUINJ ONE (01:28)
[2019-10-07] MEDS ORDERED: DINOPROSTONE 10 MG VAGINAL INSERT.SR ONE (01:28)
[2019-10-07 01:37] LABS: ABSOLUTE EOSINOPHILS # (AUTO) 0.1 10^3/uL (0.0-0.6); ABSOLUTE LYMPHOCYTES (AUTO) 2.5 10^3/uL (0.5-4.7); ABSOLUTE MONOCYTES (AUTO) 0.7 10^3/uL (0.1-1.4); ABSOLUTE NEUT (AUTO) 8.2 10^3/uL (1.7-8.2); BASOPHILS % (AUTO) 0.4 % (0-2); EOSINOPHILS % (AUTO) 0.6 % (0-6); MEAN CORPUSCULAR HEMOGLOBIN 28.4 pg (27.0-33.4); MEAN CORPUSCULAR HGB CONC 33.4 g/dL (32.0-36.0); MEAN CORPUSCULAR VOLUME 85 fl (80-97); PLATELET COUNT 233 10^3/uL (150-450); RED BLOOD COUNT 4.59 10^6/uL (3.72-5.28); RED CELL DISTRIBUTION WIDTH 15.1 % (11.5-14.0); TOTAL CELLS COUNTED % (AUTO) 100 %; WHITE BLOOD COUNT 11.6 10^3/uL (4.0-10.5)
[2019-10-07 01:43] LABS: APPEARANCE,URINE CLOUDY; BILIRUBIN,URINE NEGATIVE (NEGATIVE); COLOR,URINE YELLOW; GLUCOSE, URINE NEGATIVE (NEGATIVE); KETONES,URINE NEGATIVE (NEGATIVE); LEUKOCYTE ESTERASE,URINE SMALL (NEGATIVE); NITRITE,URINE NEGATIVE (NEGATIVE); PROTEIN,URINE 30 mg/dL (NEGATIVE); URINE SPECIFIC GRAVITY 1.026
[2019-10-07 02:13] LABS: URINE AMPHETAMINES SCREEN NEGATIVE; URINE BARBITURATES SCREEN NEGATIVE; URINE BENZODIAZEPINES SCREEN NEGATIVE; URINE COCAINE SCREEN NEGATIVE; URINE MARIJUANA (THC) SCREEN NEGATIVE; URINE METHADONE SCREEN NEGATIVE; URINE PHENCYCLIDINE SCREEN NEGATIVE
--- NOTE | 2019-10-07 10:41 | L&D Progress Notes ---
PROGRESS NOTES Datetime Report Generated by CPN: 10/07/2019 10:40 PROGRESS NOTE Vital Signs : Reviewed; Within Normal Limits Comment: Cervidil in place, Cat 1 strip, POC discussed LAST VAGINAL EXAM-NURSING Nursing Exam Dilitation: 1.0 Nursing Exam Effacement: 80 Nursing Exam Station: -2 Nursing Exam Contractions: Unable to determine RN at bedside adjusting TOCO FETUS A FHR Category: Category I SIGNATURE SIGNATURE: [id number] Assignment: Michelle Terrazas MD Signature: with User ID: Camilla : with User ID: [email or web address] [email or web address]
--- NOTE | 2019-10-07 12:33 | Admission Physical ---
Datetime Report Generated by CPN: 10/07/2019 12:33 CURRENT ADMISSION Hx Assessment: The History has been Reviewed and is Current Chief Complaint: Scheduled Induction of Labor Indication for Induction: Postterm Admit Impression : Postterm, Intrauterine ; No Active Labor; Intact Membranes Admit Plan: Admit to Unit; Initiate Labor Induction Protocol ALLERGIES Medication Allergies: Yes Medication Allergies: hydrocodone bitartrate/Hives (09/30/2019); clavulanic acid (10/06/2019); amoxicillin (10/06/2019) Latex: No Latex Allergies OBSTETRICAL HISTORY EDC: 10/01/2019 00:00 : 1 Para: 0 Gestational Diabetes: No Rh Sensitization: No Incompetent Cervix: No ANASTACIA: No Infertility: No ART Treatment: No Uterine Anomaly: No IUGR: No Hx Previous C/S: No Macrosomia: No Hx Loss/Stillborn: No PIH: No Hx : No Placenta Previa/Abruption: No Depression/PP Depression: No PTL/PROM: No Post Hemorrhage: No Current Procedures: Ultrasound Obstetrical History Comments: G1- Current SEE RECORDS Alcohol: No Marijuana : No Cocaine: No Other Illicit Drugs: No Cigarettes: Never Smoker. 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 Surgery: No Heart Disease: No Hosp/Surgery: Yes Autoimmune Disorder: No Anesthetic Complications: No Kidney Disease: No Abnormal Pap Smear: Yes Neuro/Epilepsy: No Psychiatric Disorders: No Other Medical Diseases: No Hepatitis/Liver Disease: No Significant Family History: No Varicosities/Phlebitis: No Trauma/Violence : No Thyroid Dysfunction: No Medical History Comments: appendectomy ( 2004) tonsilectomy/ adnoidectomy as a child, SIL in 2019 INFECTIOUS HISTORY Gonorrhea: No Genital Herpes: No Chlamydia: No Tuberculosis: No Syphilis: No Hepatitis: No HIV/AIDS Exposure: No Rash or Viral Illness: No HPV: No PHYSICAL EXAM General: Normal HEENT: Normal Neurologic: Normal Thyroid: Normal Heart: Normal Lungs: Normal Breast: Normal Back: Normal Abdomen: Normal Genitourinary Exam: Normal Extremities: Normal DTRs: Normal Pelvic Type: Adequate Physical Exam Comments: G1 Obesity IOL for postdates GBS + FETUS A EGA: 40.6 Monitoring: External US FHR Category: Category I Admit Comment: Admitted to for IOL post dates, Cervidil and then Pitocin Cat 1 strip + GBS POC reviewed anticipate PLANS FOR LABOR AND DELIVERY Labor and Delivery: None Pain Management: Epidural Feeding Preference: Breast Benefit of Breast Feed Discussed: Yes INFORMED CONSENT Assignment: Michelle Terrazas MD Signature: with User ID: [email or web address] : with User ID: [email or web address]
[2019-10-07] MEDS ORDERED: MISOPROSTOL 0.1 MG TABLET ONE ×2 (16:22→21:02)
--- NOTE | 2019-10-07 16:25 | L&D Progress Notes ---
PROGRESS NOTES Datetime Report Generated by CPN: 10/07/2019 16:25 PROGRESS NOTE Plan: Continue Present Management; Cervical Ripening Vital Signs : Reviewed; Within Normal Limits Comment: Cervidil out, no cervical change, Cytotec PV 25 mcg, Cat 1 strip LAST VAGINAL EXAM-NURSING Nursing Exam Dilitation: 1.0 Nursing Exam Effacement: thick Nursing Exam Station: high Nursing Exam Contractions: Unable to determine RN at bedside adjusting TOCO FETUS A FHR Category: Category II SIGNATURE SIGNATURE: [id number] Assignment: Michelle Terrazas MD Signature: with User ID: Camilla : with User ID: Camilla
[2019-10-07] MEDS ORDERED: MISOPROSTOL 0.1 MG TABLET PV ONE (20:56)
[2019-10-07] MEDS ORDERED: NALBUPHINE HCL INJ 10 MG/1 ML AMPULE IV ONE (20:57)
[2019-10-07] MEDS ORDERED: PROMETHAZINE HCL INJ 25 MG/1 ML VIAL IV ONE (20:58)
[2019-10-07] MEDS ORDERED: NALBUPHINE HCL INJ 10 MG/1 ML AMPULE ONE (21:02)
[2019-10-07] MEDS ORDERED: PROMETHAZINE HCL INJ 25 MG/1 ML VIAL ONE (21:02)
--- NOTE | 2019-10-07 21:35 | PDOC PROGRESS REPORT ---
Subjective Progress Note for:: 10/07/19 Subjective:: Feeling some cramping type contractions now. No VB or LOF. GOOD FM Reason For Visit: /INDUCTION Physical Exam - Physical Exam Vital Signs: Intake & Output 10/06/19 10/07/19 10/08/19 06:59 06:59 06:59 Weight 135.6 kg General appearance: PRESENT: no acute distress, cooperative Respiratory exam: PRESENT: clear to auscultation mika Cardiovascular exam: PRESENT: RRR, +S1, +S2 GI/Abdominal exam: PRESENT: soft - Gravid/obese Extremities exam: PRESENT: full ROM. ABSENT: calf tenderness, clubbing, pedal edema Musculoskeletal exam: PRESENT: ambulatory Neurological exam: PRESENT: alert, awake, oriented to person, oriented to place, oriented to time, oriented to situation, CN II-XII grossly intact. ABSENT: motor sensory deficit Psychiatric exam: PRESENT: appropriate affect, normal mood. ABSENT: homicidal ideation, suicidal ideation - Obstetrical Exam External Genitalia: normal Dilation (cm): 2 Effacement (%): 50 Station: -3 Result Laboratory Results: 10/07/19 01:00 10/06/19 10/07/19 10/07/19 23:55 01:00 01:00 WBC 11.6 H RBC 4.59 Hgb 13.0 Hct 39.0 MCV 85 MCH 28.4 MCHC 33.4 RDW 15.1 H Plt Count 233 Seg Neutrophils % 71.0 Urine Color YELLOW Urine Appearance CLOUDY Urine pH 5.0 Ur Specific Ralston 1.026 Urine Protein 30 H Urine Glucose (UA) NEGATIVE Urine Ketones NEGATIVE Urine Blood SMALL H Urine Nitrite NEGATIVE Ur Leukocyte Esterase SMALL H Blood Type O POSITIVE Antibody Screen NEGATIVE Assessment & Plan - Diagnosis (1) Post-dates Is this a current diagnosis for this admission?: Yes - Time Time Spent with patient: 15-24 minutes Anticipated discharge: Home Anticipated DC Timeframe: within 72 hours - Plan Summary Plan Summary: -Continue CEFM and toco -Cytotec 25mcg PV now -Start GBS prophylaxis -If softer/more dilated next check consider AROM -Epidural PRN -Plan for
[2019-10-07] MEDS ORDERED: CEFAZOLIN 2 GM/D5W RTU 2 GM/50 ML RTUPB IV ONE (21:39)
[2019-10-08] MEDS: RINGERS SOLUTION,LACTATED 1,000 ML IV PRN ×2 (01:09→09:09)
[2019-10-08] MEDS ORDERED: CEFAZOLIN 2 GM/D5W RTU 2 GM/50 ML RTUPB IV ONE ×2 (05:18→09:36)
[2019-10-08] MEDS ORDERED: FENTANYL/BUPIVACAINE/NS/PF 300 MCG/150 ML RTUINJ EPI ONE (05:18)
[2019-10-08] MEDS ORDERED: EPHEDRINE SULFATE INJ 50 MG/1 ML AMPULE ONE ×2 (05:18→09:43)
[2019-10-08] MEDS ORDERED: ROPIVACAINE HCL 0.2% INJ/PF (2 MG/ML) 20 ML SDV ONE (05:19)
[2019-10-08] MEDS: CEFAZOLIN 2 GM/D5W RTU 2 GM/50 ML RTUPB IV SCH ×4 (05:24→18:45)
[2019-10-08] MEDS ORDERED: CEFAZOLIN SODIUM 3 GM in DEXTROSE 5%-WATER 50 ML IV PRN (09:34)
[2019-10-08] MEDS ORDERED: CITRIC ACID/SODIUM CITRATE ORAL SOLN 15 ML UDCUP ONE (09:36)
[2019-10-08] MEDS ORDERED: CEFAZOLIN 1 GM/D5W RTU 1 GM/50 ML RTUPB IV ONE (09:37)
[2019-10-08] MEDS ORDERED: OXYTOCIN 10 UNIT/ML VIAL ONE (09:43)
[2019-10-08] MEDS ORDERED: KETOROLAC TROMETHAMINE INJ/PF 30 MG/1 ML SDV ONE (09:43)
[2019-10-08] MEDS ORDERED: FENTANYL CITRATE INJ/PF 100 MCG/2 ML AMPUL ONE (09:43)
[2019-10-08] MEDS ORDERED: MIDAZOLAM 2 MG/2 ML INJ ONE (09:43)
[2019-10-08] MEDS ORDERED: ACETAMINOPHEN 1,000 MG/100 ML RTUPB IV ONE (09:44)
[2019-10-08] MEDS ORDERED: LIDOCAINE 2% INJ-PF (20 MG/ML) 10 ML AMPUL ONE (09:44)
[2019-10-08] MEDS ORDERED: ONDANSETRON HCL INJ/PF 4 MG/2 ML SDV ONE (09:44)
[2019-10-08] MEDS ORDERED: KETAMINE HCL INJ 500 MG/10 ML VIAL ONE (09:45)
[2019-10-08] MEDS ORDERED: MORPHINE SULFATE 10 MG/ML INJ ONE ×2 (09:45→11:54)
[2019-10-08] MEDS ORDERED: PHENYLEPHRINE HCL INJ/PF 10 MG/1 ML SDV ONE (09:50)
--- NOTE | 2019-10-08 10:07 | L&D Progress Notes ---
PROGRESS NOTES Datetime Report Generated by CPN: 10/08/2019 10:07 PROGRESS NOTE Impression: Non-reassuring Heart Rate Plan: Deliver- Section Informed Consent Obtained: Section Delivery; Risks, Benefits and Alternatives Discussed Vital Signs : Reviewed; Within Normal Limits Comment: Cervical exam unchanged. Upon arrival this am patient was having tachy but appeared to be response to ephedrine. positioning change improved FHR initially and then despite inadequate MVUs and unable to begin pitocin pt began to have minimal variability and decelerations again. C/s called for NRFHTs at 0830 and personnel notified. To OR for NRFHTs. BMI 48 and reviewed wound complication risks and likely placement of JUAN drain. LAST VAGINAL EXAM-NURSING Nursing Exam Dilitation: 4.0 Nursing Exam Effacement: 60 Nursing Exam Station: -2 Nursing Exam Contractions: IUPC flushed with 10 ml NS FETUS A Monitoring: External US; Auscultation Decelerations: None FHR Category: Category II SIGNATURE SIGNATURE: [id number] Assignment: Michelle Terrazas MD Signature: with User ID: Larissa : with User ID: [email or web address]
[2019-10-08] MEDS ORDERED: MORPHINE SULFATE 10 MG/ML INJ IV PRN (11:18)
[2019-10-08] MEDS ORDERED: FENTANYL CITRATE INJ/PF 100 MCG/2 ML AMPUL IV PRN ×3 (11:18)
[2019-10-08] MEDS ORDERED: MEPERIDINE HCL/PF INJ 25 MG/1 ML DISP.SYRIN IV PRN (11:18)
[2019-10-08] MEDS ORDERED: PROMETHAZINE HCL INJ 25 MG/1 ML VIAL IV PRN ×2 (11:18→11:59)
[2019-10-08] MEDS ORDERED: DIPHENHYDRAMINE HCL 50 MG/ML VIAL IV PRN (11:18)
[2019-10-08] MEDS ORDERED: ONDANSETRON HCL INJ/PF 4 MG/2 ML SDV IV PRN (11:18)
[2019-10-08] MEDS ORDERED: OXYCODONE-ACETAMINOPHEN 5-325 MG TABLET PO PRN ×3 (11:18→13:31)
--- NOTE | 2019-10-08 11:30 | Operative Report ---
Operative Report DATE OF SURGERY: 10/08/19 PREOPERATIVE DIAGNOSIS: Nonreassuring FHRTs, 41+0ega, failed IOL, Morbid Obesity (BMI 48), GBS positive POSTOPERATIVE DIAGNOSIS: MARLEN - delivered OPERATION: Primary Section, JUAN drain placement SURGEON: KILO MONDRAGON ANESTHESIA: Epidural TISSUE REMOVED OR ALTERED: placenta and cord = sent to pathology COMPLICATIONS: mild uterine atony ESTIMATED BLOOD LOSS: 760 QUANTITATIVE BLOOD LOSS: 760 INTRAOPERATIVE FINDINGS: VFI delivered at 1031, APgars 8/9, weight 3525g (7#13oz), normal bilateral tubes/ovaries. PROCEDURE: Anesthesia provider: [Rula Valero SCRUMMASTER] Estimated blood loss: [760ml] Urine output: [200ml] IV fluids: [1000ml] Indications: [24yo at 41+0ega presented to Labor and delivery for IOL at 40+5 on 10/06 with Cervidil at approximately 0200. She then underwent continued cervical ripening with cytotec then prior provider AROM with clear fluid and cervix was 4cm. Upon my arrival to assume care of patient heart rate tracing with tachycardia and decreasing variability which seemed to be due to prior ephedrine dosing. Position changing initially helped and FHRT improved with CAT II and variability. However, decelerations and minimal variability with no cervical change. Unable to start pitocin to obtain adequate MVUs due to FHR tracing. Reviewed with family and patient that would recommend Primary section for NRFHTs. The risks, benefits, alternatives were reviewed including risks of bleeding and risks of wound complications including needing for wound vac and possibel drain. She desires to proceed with planned procedure. ] Procedure: The patient was taken to the operating room where spinal anesthesia was obtained and found to be adequate. She was then prepped and draped in the normal sterile fashion and placed in the dorsal supine position with a leftward tilt. A Pfannenstiel skin incision was then made and carried through to the underlying layers of the fascia with the scalpel. The fascia was incised in the midline and the incision extended laterally with the Ramirez scissors. The superior aspect of the fascial incision was then grasped with Dona clamps elevated and the underlying rectus muscles dissected off [bluntly]. Attention was then turned to the inferior aspect of the fascial incision which in a similar fashion was grasped, tented up with Dona clamps, and the rectus muscles dissected off [bluntly]. The rectus muscles were then in the midline and the peritoneum at the amount identified and entered [bluntly]. The peritoneal incision was then extended superiorly and inferiorly with good visualization of the bladder. The bladder blade was inserted and the vesicouterine peritoneum identified grasped with Mosotho pickups and entered sharply with the Metzenbaum scissors. This incision was then extended laterally with the Metzenbaum scissors and a bladder flap created digitally. The bladder blade was then reinserted and the lower uterine segment incised in a transverse fashion with the scalpel. The uterine incision was then extended bluntly. The bladder blade was removed and the infant's head was delivered from cephalic presentation atraumatically. The nose and mouth were suctioned and the cord doubly clamped and cut. And the infant was handed off to waiting pediatricians. The placenta was then delivered spontaneously and the uterus exteriorized and cleared of all clots and debris. The uterine incision was then repaired with 1- 0 Vicryl in a running locked fashion. A second layer of the same suture was used to obtain hemostasis via imbrication of the initial layer. The bladder flap was then repaired with 3-0 chromic in a running fashion. The uterus was returned to the patient's abdomen and Surgicel was placed for additional hemostasis. The gutters were cleared of all clots and debris. JUAN drain placed above fascia in Suq Q and placed to suction. All operative sites were noted to be hemostatic. The fascia was reapproximated with 0 Vicryl in a running fashion from each lateral edge to the midline. The skin was closed with 3-0 Monocryl in a running subcuticular fashion with overlying Exofin for additional dressing as well as wound closure. The patient tolerated the procedure well. Sponge lap needle and instrument counts are correct times 2. 3 g of Ancef were given prior to skin incision. The patient was taken to the recovery area awake and in stable condition.
[2019-10-08] MEDS ORDERED: OXYTOCIN/0.9 % SODIUM CHLORIDE 30 UNIT/500 ML RTUINJ ONE (11:52)
[2019-10-08] MEDS ORDERED: ACETAMINOPHEN 1,000 MG/100 ML RTUPB IV PRN (11:59)
[2019-10-08] MEDS ORDERED: HYDROMORPHONE HCL INJ/PF 2 MG/ML AMPULE IV PRN (11:59)
[2019-10-08] MEDS ORDERED: SIMETHICONE 80 MG TAB.CHEW PO PRN (11:59)
[2019-10-08] MEDS ORDERED: OXYTOCIN/0.9 % SODIUM CHLORIDE 30 UNIT/500 ML RTUINJ IV PRN (11:59)
[2019-10-08] MEDS ORDERED: MEASLES,MUMPS&RUBELLA VACC/PF 0.5 ML VIAL SUBCUT PRN (11:59)
[2019-10-08] MEDS ORDERED: DIPH/PERTUSS(ACELL)/TETANUS VAC/PF 0.5 ML SYR (>=10YO) IM PRN (11:59)
[2019-10-08] MEDS ORDERED: RINGERS SOLUTION,LACTATED 1,000 ML IV PRN (11:59)
[2019-10-08] MEDS ORDERED: ACETAMINOPHEN 325 MG TABLET PO PRN (11:59)
[2019-10-08] MEDS ORDERED: MISOPROSTOL 0.2 MG TABLET PR ONE (12:03)
[2019-10-08] MEDS ORDERED: HYDROMORPHONE HCL INJ/PF 2 MG/ML AMPULE ONE (12:43)
[2019-10-08] MEDS: DOCUSATE SODIUM 100 MG CAPSULE PO SCH (17:27)
[2019-10-08] MEDS: OXYCODONE-ACETAMINOPHEN 5-325 MG TABLET PO PRN ×2 (17:30→23:24)
--- NOTE | 2019-10-08 21:27 | Birth Certificate Data ---
Cert Data Datetime Report Generated by CPN: 10/08/2019 21:26 RISK FACTORS IN THIS 49a. Diabetes: No (06/01/2019 16:06:Lissy West RN) 49b. Hypertension: No (06/01/2019 16:06:Lissy West RN) 49c. Previous Births: 0 (06/01/2019 16:06:Diane Figueroa RN) 49d. Stillborns: No (06/01/2019 16:06:Lissy West RN) 49d. IUGR: No (06/01/2019 16:06:Lissy West RN) 49e. Infertility Treatment: No (06/01/2019 16:06:Lissy West RN) 49f. Previous Cesareans: 0 (06/01/2019 16:06:Diane Figueroa RN) Mother's Height 50b. Height Inches: 66 (10/08/2019 15:15:QS system process) Mother's Weight 51a. Pre- Weight (lbs): 284 (06/01/2019 16:06:Lissy West RN) 51b. Weight at Delivery (lbs): 299 (10/08/2019 15:15:QS system process) 52. Dt Last Normal Menses Began: 12/25/2018 00:00 (06/01/2019 16:06:Denise Childs RN) Infections Present/Treated 53a. Gonorrhea: No (06/01/2019 16:06:Lissy West RN) Results this Hospital Visit : Negative (06/01/2019 16:06:Lissy West RN) 53b. Syphilis: No (06/01/2019 16:06:Lissy West RN) Results this Hospital Visit: NONREACTIVE (10/07/2019 01:00:QS system process) 53c. Chlamydia: No (06/01/2019 16:06:Lissy West RN) Results this Hospital Visit: Negative (06/01/2019 16:06:Lissy West RN) 53d. Hepatitis B: No (06/01/2019 16:06:Lissy West RN) Results this Hospital Visit: Negative (06/01/2019 16:06:Lissy West RN) 53e. Hepatitis C: Negative (06/01/2019 16:06:Elyssa Baptiste RN) 53h. Mother Tested for HBsAG: Yes (06/01/2019 16:06:Elyssa Baptiste RN) 53i. Date Tested: 03/18/2019 00:00 (06/01/2019 16:06:Elyssa Baptiste RN) 53j. Test Result: Negative (06/01/2019 16:06:Lissy West RN) Obstetric Procedures 54a, b, c. Obstetric Procedures: Ultrasound (06/01/2019 16:06:Lissy West RN) Cigarette Smoking 55a. 3 Months Before Preg - Ci (06/01/2019 16:06:Diane Figueroa RN) 55b. 1st Trimester of Preg- Ci (06/01/2019 16:06:Diane Figueroa RN) 55c. 2nd Trimester of Preg- Ci (06/01/2019 16:06:Diane Figueroa RN) 55d. 3rd Trimester of Preg- Ci (06/01/2019 16:06:Diane Figueroa RN) Onset of Labor 56a. PROM >12 Hrs: 5.78 (10/08/2019 04:44:QS system process) 57a. Induction of Labor: Induction (06/01/2019 16:06:Zoe Isidro RN) 57a. Induction of Labor: Cervidil; Cytotec @ (10/07/2019 21:08:Kenyon Peña RN) 57c. Non-Vertex Presentation A: Vertex (06/01/2019 16:06:Kenyon Peña RN) 57d. Steroids - Lung Mat: None (06/01/2019 16:06:Zoe Isidro RN) 57d. Steroids - Lung Mat: Not Applicable (06/01/2019 16:06:Zoe Isidro RN) 57e. Antibiotics During Labor: 10/08/2019 09:52 (06/01/2019 16:06:Kenyon Peña RN) 57f. Mat [place] or Temp >100.4: 98.9 (06/01/2019 16:06:Zoe Isidro RN) 57g. Moderate/Heavy Meconium: Clear (10/08/2019 04:44:Gay Cordova RN) 57h. Intolerance of Labor: Nonreassuring Status (06/01/2019 16:06:Kenyon Peña RN) 57i. Epidural/Spinal Anesthesia: Epidural (06/01/2019 16:06:Kenyon Peña RN) Method of Delivery 58a. Forceps - Unsuccessful A: N/A (06/01/2019 16:06:Kenyon Peña RN) 58b. Vacuum - Unsuccessful A: N/A (06/01/2019 16:06:Kenyon Peña RN) 58c. Presentation at 58c. Presentation at - A : Vertex (06/01/2019 16:06:Kenyon Peña RN) 58c. Presentation at - A : N/A (06/01/2019 16:06:Kenyon Peña RN) 58c. Presentation at - A : Cephalic (06/01/2019 16:06:Balwinder TiffanySatya Sean, [facility]) Final Route and Method of Del 58d. Baby A Route/Delivery: (06/01/2019 16:06:Balwinder Estrada, [facility]) 58e. Trial of Labor Attempted: No (06/01/2019 16:06:Kenyon Peña RN) 58e. Trial of Labor Attempted A: N/A (06/01/2019 16:06:Kenyon Peña RN) 58e. Trial of Labor Attempted B: N/A (06/01/2019 16:06:Kenyon Peña RN) Maternal Morbidity 59b. 3rd or 4th Degree Lacs: None (06/01/2019 16:06:Kenyon Peña, NEFTALI) Birthweight Baby A: 3525 (06/01/2019 16:06:Balwinder Estrada [facility]) 60a. Pounds : 7 (06/01/2019 16:06:QS system process) 60b. Ounces: 12 (06/01/2019 16:06:QS system process) 61. GA at Delivery Baby A: 41.0 (06/01/2019 16:06:PEDRO Crawford) : Late Term- 41- 41.6 Weeks (06/01/2019 16:06:QS system process) 62a. 5 Minute Baby A: 9 (06/01/2019 16:06:QS system process)
--- NOTE | 2019-10-08 21:27 | Delivery Summary ---
Del Sum A-C Datetime Report Generated by CPN: 10/08/2019 21:26 DELIVERY PERSONNEL DELIVERY PERSONNEL: [id number] Delivery Doctor:: Cher Keating MD Anesthesiologist:: Dr. Lambert TAPPER OPERATOR:: ADavis Domestic Violence Advocate:: Keynon Peña RN Neonatal Nurse Practitioner:: PEDRO Lam Nursery Nurse:: Allegra Hardy RN Bracelet Former/PRINT FINISHER: ST Gabriel Bracelet Former/PRINT FINISHER: Irene Welch ST MATERNAL INFORMATION Delivery Anesthesia: Epidural Medications After Delivery: Pitocin 30 Units in 500ml NS/D5W Delivery QBL: 760 Maternal Complications: None LABOR SUMMARY EDC: 10/01/2019 00:00 No. Babies in Womb: 1 Attempted: No Labor Anesthesia: Epidural LABOR INFORMATION Reason for Induction: Intrauterine Growth Retardation; Oligohydramnios Cervical Ripening Agents: Cervidil; Cytotec @ Oxytocin: Induction Group B Beta Strep: Positive Antibiotics # of Doses: 3 Antibiotics Time of Last Dose: 10/08/2019 09:52 Name of Antibiotic Given: Ancef Steroids Given: None Reason Steroids Not Administered: Not Applicable MEMBRANES Membranes Rupture Method: Artificial Rupture of Membranes: 10/08/2019 04:44 Length of Rupture (hr): 5.78 Amniotic Fluid Color: Clear Amniotic Fluid Amount: Small Amniotic Fluid Odor: Normal STAGES OF LABOR Stage 3 hr: 0 Stage 3 min: 1 VAGINAL DELIVERY Episiotomy: None Laceration #1: None Laceration Extension #1: N/A Laceration Repair: Not Applicable Sponge Count Correct: N/A Sharps Count Correct: N/A CSECTION DELIVERY Primary Indication: Nonreassuring Status CSection Urgency: Non-Scheduled CSection Incidence: Primary Labor: N/A Elective: N/A CSection Incision: Lower Uterine Transverse BABY A INFORMATION Infant Delivery Date/Time: 10/08/2019 10:31 Method of Delivery: Nurse Controlled Delivery: No Born in Route : No : N/A Forceps: N/A Vacuum Extraction: N/A Shoulder Dystocia : No PRESENTATION/POSITION BABY A Presentation: Cephalic Cephalic Presentation: Vertex Breech Presentation: N/A PLACENTA INFORMATION BABY A Placenta Delivery Time : 10/08/2019 10:32 Placenta Method of Delivery: Manual Removal Placenta Status: Delivered SCORES BABY A Heart Rate 1 min: >100 bpm Resp Effort 1 min: Good Cry Reflex Irritability 1 min: Cough or Sneeze or Pulls Away Muscle Tone 1 min: Active Motion Color 1 min: Blue/Pale Resuscitation Effort 1 min: Tactile Stimulation SCORE 1 MIN: 8 Heart Rate 5 min: >100 bpm Resp Effort 5 min: Good Cry Reflex Irritability 5 min: Cough or Sneeze or Pulls Away Muscle Tone 5 min: Active Motion Color 5 min: Body [place], Extremities Blue Resuscitation Effort 5 min: Tactile Stimulation SCORE 5 MIN: 9 INFANT INFORMATION BABY A Gestational Age at Delivery: 41.0 Gestational Status: Late Term- 41- 41.6 Weeks Infant Outcome : Liveborn Infant Condition : Stable Sex: Female IDENTIFICATION BABY A Verification Date/Time: 10/08/2019 10:33 ID Band Number: [id number] Mother's Name Verified: Yes RN Verifying : Freddiertpat,RN Additional Verifying Personnel: [facility] [place],[facility] WEIGHT/LENGTH BABY A Infant Birthweight (gm): 3525 Weight (lb): 7 Weight (oz): 12 Infant Length (in): 20.50 Length (cm): 52.07 CORD INFORMATION BABY A No. Cord Vessels: 3 Nuchal Cord : N/A Cord Blood Taken: Yes-For Eval (Mom's Blood Type - or O+) Suction: Mouth; Nose ASSESSMENT BABY A Skin to Skin: Yes Skin to Skin Time (min): 5 BABY B INFORMATION : N/A
[2019-10-09] MEDS: OXYCODONE-ACETAMINOPHEN 5-325 MG TABLET PO PRN ×4 (04:09→20:48)
[2019-10-09] MEDS: CEFAZOLIN 2 GM/D5W RTU 2 GM/50 ML RTUPB IV SCH (06:24)
[2019-10-09 07:43] LABS: HEMATOCRIT 32.5 % (36.0-47.0); HEMOGLOBIN 11.2 g/dL (12.0-15.5); MEAN CORPUSCULAR HEMOGLOBIN 29.1 pg (27.0-33.4); MEAN CORPUSCULAR HGB CONC 34.3 g/dL (32.0-36.0); MEAN CORPUSCULAR VOLUME 85 fl (80-97); PLATELET COUNT 191 10^3/uL (150-450); RED BLOOD COUNT 3.83 10^6/uL (3.72-5.28); RED CELL DISTRIBUTION WIDTH 14.8 % (11.5-14.0); WHITE BLOOD COUNT 11.5 10^3/uL (4.0-10.5)
[2019-10-09] MEDS: DOCUSATE SODIUM 100 MG CAPSULE PO SCH ×2 (09:12→17:24)
[2019-10-09] MEDS: PRENATAL VITAMIN W DHA CAPSULE PO SCH (09:12)
--- NOTE | 2019-10-09 12:06 | PDOC PROGRESS REPORT ---
Subjective-OB Progress Note for:: 10/09/19 Subjective: reports bleeding slowing,pain controlled with current meds. denies needs Physical Exam (OB) Vital Signs: Temp Pulse Resp BP Pulse Ox 97.8 F 97 18 129/80 H 97 10/09/19 11:26 10/09/19 11:26 10/09/19 11:26 10/09/19 11:26 10/09/19 11:26 Intake & Output 10/08/19 10/09/19 10/10/19 06:59 06:59 06:59 Intake Total 50 3160 Output Total 2320 20 Balance 50 840 -20 - Dressing Removed: No Incision: Well Approximated Closure Type: joseph drain with scant serosanguinous - Maternal Morbidity 59. Maternal Morbidity (serious complications experinced by the mother associated with labor and delivery: None of the above - Abdomen Description: Tender, Soft Fundal Description: Firm, Midline Fundal Height: u/u - u/2 - Abdominal Distension: No distension - Extremities Lower extremities: Joe's sign - neg Calf: Other - mild edema Objective-Diagnostic Laboratory: 10/09/19 07:12 10/09/19 07:12 WBC 11.5 H RBC 3.83 Hgb 11.2 L Hct 32.5 L MCV 85 MCH 29.1 MCHC 34.3 RDW 14.8 H Plt Count 191 Assessment and Plan(PN) - Assessment and Plan (1) Non-reassuring electronic monitoring tracing Is this a current diagnosis for this admission?: Yes (2) Oligohydramnios delivered Is this a current diagnosis for this admission?: Yes (3) Post-dates Is this a current diagnosis for this admission?: Yes (4) S/P primary low transverse Is this a current diagnosis for this admission?: Yes - Time Spent with Patient Time with patient: Less than 15 minutes Medications reviewed and adjusted accordingly: Yes - Disposition Anticipated Discharge Disposition: Home, Self Care Anticipated Discharge Timeframe: within 48 hours - discussed plan with dr larios and orders adjusted
[2019-10-09] MEDS: SULFAMETHOXAZOLE/TRIMETHOPRIM 800-160 MG TABLET PO SCH ×2 (13:05→21:04)
[2019-10-09] MEDS ORDERED: BISACODYL 10 MG SUPP.RECT PR ONE (19:00)
[2019-10-10 05:57] LABS: HEMATOCRIT 31.8 % (36.0-47.0); HEMOGLOBIN 10.9 g/dL (12.0-15.5); MEAN CORPUSCULAR HEMOGLOBIN 28.9 pg (27.0-33.4); MEAN CORPUSCULAR HGB CONC 34.3 g/dL (32.0-36.0); MEAN CORPUSCULAR VOLUME 84 fl (80-97); PLATELET COUNT 194 10^3/uL (150-450); RED BLOOD COUNT 3.76 10^6/uL (3.72-5.28); WHITE BLOOD COUNT 15.4 10^3/uL (4.0-10.5)
[2019-10-10] MEDS ORDERED: CEFTRIAXONE 1 GM/D5W RTU 1 GM/50 ML RTUPB IV ONE (07:37)
[2019-10-10] MEDS: OXYCODONE-ACETAMINOPHEN 5-325 MG TABLET PO PRN (07:58)
[2019-10-10] MEDS ORDERED: CEFTRIAXONE 1 GM/D5W RTU 1 GM/50 ML RTUPB IV SCH (09:00)
--- NOTE | 2019-10-10 12:04 | PDOC DISCHARGE SUMMARY ---
Impression - Admit/DC Date/PCP Admission Date/Primary Care Provider: 10/06/19 23:46 AUDI FAIRCHILD MD Discharge Date: 10/10/19 - Discharge Diagnosis (1) Non-reassuring electronic monitoring tracing Is this a current diagnosis for this admission?: Yes (2) Oligohydramnios delivered Is this a current diagnosis for this admission?: Yes (3) Post-dates Is this a current diagnosis for this admission?: Yes (4) S/P primary low transverse Is this a current diagnosis for this admission?: Yes - Additional Information Discharge Diet: Regular Discharge Activity: Balance Activity w/Rest, No Lifting Over 10 Pounds, No Lifting/Push/Pulling, Pelvic Rest, No tub bath Referrals: AUDI FAIRCHILD MD [Primary Care Provider] - Prescriptions: Ibuprofen [Motrin 600 mg Tablet] 800 mg PO Q8HP PRN #90 tablet PRN Reason: Oxycodone HCl/Acetaminophen [Percocet 5-325 mg Tablet] 1 tab PO Q4HP PRN #30 tablet PRN Reason: Vit/Dha [ Multi + Dha Capsule] 1 cap PO DAILY #90 capsule Sulfamethoxazole/Trimethoprim [Septra-Ds 800-160 mg Tablet] 1 tab PO Q12 #14 tablet Home Medications: Docusate Sodium [Colace 100 mg Capsule] 100 mg PO BID capsule 10/10/19 Ibuprofen [Motrin 600 mg Tablet] 800 mg PO Q8HP PRN #90 tablet 10/10/19 Oxycodone HCl/Acetaminophen [Percocet 5-325 mg Tablet] 1 tab PO Q4HP PRN #30 tablet 10/10/19 Vit/Dha [ Multi + Dha Capsule] 1 cap PO DAILY #90 capsule 10/10/19 Sulfamethoxazole/Trimethoprim [Septra-Ds 800-160 mg Tablet] 1 tab PO Q12 #14 tablet 10/10/19 Hospital Course 59. Maternal Morbidity (serious complications experinced by the mother associated with labor and delivery: None of the above Results Laboratory Results: WBC 15.4 10^3/uL (4.0-10.5) H 10/10/19 05:35 RBC 3.76 10^6/uL (3.72-5.28) 10/10/19 05:35 Hgb 10.9 g/dL (12.0-15.5) L 10/10/19 05:35 Hct 31.8 % (36.0-47.0) L 10/10/19 05:35 MCV 84 fl (80-97) 10/10/19 05:35 MCH 28.9 pg (27.0-33.4) 10/10/19 05:35 MCHC 34.3 g/dL (32.0-36.0) 10/10/19 05:35 RDW 15.0 % (11.5-14.0) H 10/10/19 05:35 Plt Count 194 10^3/uL (150-450) 10/10/19 05:35 Lymph % (Auto) 22.0 % (13-45) 10/07/19 01:00 [place] % (Auto) 6.0 % (3-13) 10/07/19 01:00 Eos % (Auto) 0.6 % (0-6) 10/07/19 01:00 Baso % (Auto) 0.4 % (0-2) 10/07/19 01:00 Absolute Neuts (auto) 8.2 10^3/uL (1.7-8.2) 10/07/19 01:00 Absolute Lymphs (auto) 2.5 10^3/uL (0.5-4.7) 10/07/19 01:00 Absolute Monos (auto) 0.7 10^3/uL (0.1-1.4) 10/07/19 01:00 Absolute Eos (auto) 0.1 10^3/uL (0.0-0.6) 10/07/19 01:00 Absolute Basos (auto) 0.0 10^3/uL (0.0-0.2) 10/07/19 01:00 Seg Neutrophils % 71.0 % (42-78) 10/07/19 01:00 Urine Color YELLOW 10/06/19 23:55 Urine Appearance CLOUDY 10/06/19 23:55 Urine pH 5.0 (5.0-9.0) 10/06/19 23:55 Ur Specific [place] 1.026 10/06/19 23:55 Urine Protein 30 mg/dL (NEGATIVE) H 10/06/19 23:55 Urine Glucose (UA) NEGATIVE mg/dL (NEGATIVE) 10/06/19 23:55 Urine Ketones NEGATIVE mg/dL (NEGATIVE) 10/06/19 23:55 Urine Blood SMALL (NEGATIVE) H 10/06/19 23:55 Urine Nitrite NEGATIVE (NEGATIVE) 10/06/19 23:55 Urine Bilirubin NEGATIVE (NEGATIVE) 10/06/19 23:55 Urine Urobilinogen 2.0 mg/dL (<2.0) H 10/06/19 23:55 Ur Leukocyte Esterase SMALL (NEGATIVE) H 10/06/19 23:55 Urine Ascorbic Acid NEGATIVE (NEGATIVE) 10/06/19 23:55 Urine Opiates Screen NEGATIVE 10/06/19 23:55 Urine Methadone Screen NEGATIVE 10/06/19 23:55 Ur Barbiturates Screen NEGATIVE 10/06/19 23:55 Ur Phencyclidine Scrn NEGATIVE 10/06/19 23:55 Ur Amphetamines Screen NEGATIVE 10/06/19 23:55 U Benzodiazepines Scrn NEGATIVE 10/06/19 23:55 Urine Cocaine Screen NEGATIVE 10/06/19 23:55 U Marijuana (THC) Screen NEGATIVE 10/06/19 23:55 RPR NONREACTIVE (NONREACTIVE) 10/07/19 01:00 Blood Type O POSITIVE 10/07/19 01:00 Antibody Screen NEGATIVE 10/07/19 01:00 Plan Plan of Treatment: follow up in 1 week at [facility] for post check
[2019-10-10 13:59] VITALS: BP 131/83
[2019-10-10] MEDS: PRENATAL VITAMIN W DHA CAPSULE PO SCH (14:06)
[2019-10-10] MEDS: DOCUSATE SODIUM 100 MG CAPSULE PO SCH (14:06)
[2019-10-10] MEDS: SULFAMETHOXAZOLE/TRIMETHOPRIM 800-160 MG TABLET PO SCH (14:06)
== END 2019-10-10 15:04 | disposition home or self-care (01) | DRG 787 ==
LOC: LR 23:46 → 2S 10-08 13:55
PROVIDERS: ADMIT Obstetrics & Gynecology; ATTEND Student in an Organized Health Care Education/Training Program
PROC: 10D00Z1 Extraction of Products of Conception, Low, Open Approach (ICD-10-PCS; principal; 2019-10-08)
PROC: 0W9J00Z Drainage of Pelvic Cavity with Drainage Device, Open Approach (ICD-10-PCS; 2019-10-08)
DX: O48.0 Post-term pregnancy (principal); O41.03X0 Oligohydramnios, third trimester, not applicable or unspecified; O99.824 Streptococcus B carrier state complicating childbirth; O99.214 Obesity complicating childbirth; E66.9 Obesity, unspecified; O36.5930 Maternal care for other known or suspected poor fetal growth, third trimester, not applicable or unspecified; O76 Abnormality in fetal heart rate and rhythm complicating labor and delivery; Z3A.41 41 weeks gestation of pregnancy; Z37.0 Single live birth; Z90.49 Acquired absence of other specified parts of digestive tract
CPT/HCPCS: 1967; 1968; 36415; 80307; 81005; 85025; 85027; 86592; 86850; 86900; 86901; 88307; 94760; 94799; 99140; J0131; J0690; J0696; J1170; J1885; J2250; J2270; J2300; J2370; J2405; J2550; J2590; J2795; J3010; J3490